=== PATIENT | male | born 1990 | race Asian ===

== ENCOUNTER 2018-08-05 21:48 | Emergency (ER) | payer OTHER, SELFPAY ==
[2018-08-05 21:52] VITALS: BP 144/92; PULSE 97; RESP 18; TEMP 37.7; O2SAT 97; BMI 25.5
--- NOTE | 2018-08-05 21:54 | DI.RAD.S_ITS ---
PROCEDURE: XR KNEE RT 3V INDICATIONS: Playing basketball, lateral movement, heard pop. TECHNIQUE: 3 views of the knee were acquired. COMPARISON: None. FINDINGS: Bones: No fractures or dislocations but there is a small curvilinear calcific radiodensity just above the interspinous notch on the frontal projection, potentially an avulsion fragment related to ligamentous injury.. No suspicious bony lesions. Soft tissues: No joint effusion. No suspicious soft tissue calcifications. IMPRESSION: Clinical circumstances discussed above a sports injury the calcific radiodensity noted is quite worrisome for representing evidence of a ligamentous disruption with the avulsion fragment, and therefore followup by knee MRI may be warranted for more accurate assessment. Note is made on the lateral view of a fabella which is dorsal to the distal femoral condyles that this does not represent the calcific density seen on the frontal projection. Dictated by: Bertrand Peoples M.D. on 08/06/2018 at 8:01 Approved by: Bertrand Peoples M.D. on 08/06/2018 at 8:03
--- NOTE | 2018-08-05 22:02 | ED.LOWEXIN ---
HPI - Extremity Injury (Lower) General Chief Complaint: Extremity Injury, Lower Stated Complaint: Right knee injury Time Seen by Provider: 08/05/18 22:02 Source: patient Mode of arrival: ambulatory Limitations: no limitations History of Present Illness HPI Narrative: 27-year-old here for evaluation of right knee injury. Patient states he was playing basketball. He states that he put office pressure on his right lower extremity when he felt a ?pop? on the inside of his knee. Since then he has had pain with ambulation. No prior injuries. Related Data Home Medications Medication Instructions Recorded Confirmed No Known Home Medications 08/05/18 08/05/18 Allergies Allergy/AdvReac Type Severity Reaction Status Date / Time No Known Drug Allergies Allergy Verified 08/05/18 21:58 Review of Systems Constitutional Denies weakness ENT Ears, Nose, Mouth, and Throat: Denies disequilibrium Musculoskeletal Reports arthralgias (Right knee) and Denies tingling Integumentary/Breasts Denies lesions and Denies rash Neurologic Denies tingling, Denies disequilibrium and Denies weakness Hematologic/Lymphatic Denies easy bleeding and Denies easy bruising [facility] Medical History Patient denies medical problems (Acute) Social History Smoking Status: Never smoker Social History Smoking Status: Never smoker Exam Initial Vital Signs Initial Vital Signs: Vital Signs Temperature 99.8 F H 08/05/18 21:52 Pulse Rate 97 H 08/05/18 21:52 Respiratory Rate 18 08/05/18 21:52 Blood Pressure 144/92 H 08/05/18 21:52 Pulse Oximetry 97 08/05/18 21:52 Const General: cooperative, healthy appearing, comfortable and well developed Skin Lesions: no lesions Rashes: no rashes Neuro Cognition: normal cognition Motor: muscle tone normal throughout Sensory Exam: no sensory deficits noted Extrem Other: Patient with tenderness to palpation in the medial aspect of the right knee. ACL MCL PCL and LCL intact with functional testing. He is tender to palpation along the medial joint line. No lateral joint line tenderness. No hamstring tenderness. Patient is able to do straight leg raise without any problems. No tenderness over the quadriceps or patellar tendon. Psych Appearance: grossly normal and well kempt Procedures Orthopedic Splinting/Casting Injury #1: Side: right Lower Extremity Injury Location: knee Lower Extremity Immobilizer: Akil wrap Post splinting neuro exam: no change Post splinting vascular exam: no change Placed by: Nursing Course Orders Ordered: ED Orders 08/05/18 21:54 XR knee RT 3V Stat Vital Signs - 8 hr 08/05/18 21:52 Temperature 99.8 F H Pulse Rate 97 H Respiratory Rate 18 Blood Pressure 144/92 H Pulse Oximetry 97 MDM - Extremity Injury (Lower) Imaging Data X-ray knee: Attestation: I personally reviewed and interpreted this imaging study as follows: My impression: No acute fractures or dislocations MDM Narrative Medical decision making narrative: Patient is neurovascularly intact. No fractures on the x-ray. He is tender along the medial joint line. I do suspect that he potentially has disrupted the MCL and or the medial meniscus. Offered crutches but the patient declined. He was placed in an Akil bandage for comfort. Was informed that he needed to contact his primary provider for follow-up and discuss the indications for an MRI. He was given return precautions and follow-up instructions. He expressed understanding and agreement with plan. Discharge Plan Departure Patient Disposition: Home Clinical Impression: Knee MCL sprain Qualifiers: Encounter type: initial encounter Laterality: right Qualified Code(s): S83.411A - Sprain of medial collateral ligament of right knee, initial encounter Discharge Date/Time: 08/05/18 22:42 Interventions: ED Discharge Assessment Last Done: 08/05/18 22:41 Instructions: How to Use an Elastic Bandage-Knee Sprain, DI for Knee Sprain Activity Restrictions/Additional Instructions: You can walk on year knee as needed keep the knee elevated and iced. On Wednesday you need to follow-up with your medical department. Return to the emergency department for any new or worsening symptoms Prescriptions: No Action No Known Home Medications RF: 0 Stand Alone Forms: Work Release Note
== END 2018-08-05 22:42 | disposition home or self-care (01) ==
PROVIDERS: Emergency Provider Emergency Medicine
DX: S83.411A Sprain of medial collateral ligament of right knee, initial encounter (principal); Y93.67 Activity, basketball
CPT/HCPCS: 73562; 99282; 99283